=== PATIENT | female | born 1950 | race Caucasian/White ===

== ENCOUNTER 2024-07-24 12:13 | Emergency (ER) | payer MEDICARE, MEDICAID ==
[2024-07-24] MEDS: Aspirin 81 MG Tab.Chew PO ONE (12:29)
[2024-07-24 12:31] LABS: BASOPHILS ABSOLUTE AUTO 0.03 K/uL (0.00-0.20); BASOPHILS PERCENT AUTO 0.8 % (0.0-2.0); EOSINOPHILS ABSOLUTE AUTO 0.33 K/uL (0.00-0.50); EOSINOPHILS PERCENT AUTO 8.5 % (0.0-5.0); HEMATOCRIT 36.5 % (34.0-46.0); HEMOGLOBIN 10.8 g/dL (11.7-15.5); LYMPHOCYTES PERCENT AUTO 28.3 % (10.0-50.0); MEAN CORPUSCULAR HEMOGLOBIN 23.9 pg (28.2-33.3); MEAN CORPUSCULAR HGB CONC 29.6 g/dL (31.7-36.0); MEAN CORPUSCULAR VOLUME 80.9 fL (84.0-98.0); MONOCYTES ABSOLUTE AUTO 0.25 K/uL (0.00-1.00); MONOCYTES PERCENT AUTO 6.4 % (2.0-14.0); NEUTROPHILS ABSOLUTE AUTO 2.18 K/uL (1.40-7.00); PLATELET COUNT,PLT 208 K/uL (150-350); RED BLOOD CELL COUNT 4.51 M/uL (3.77-5.09); WHITE BLOOD CELL COUNT,WBC 3.9 K/uL (4.0-10.2)
[2024-07-24 12:51] LABS: ALANINE AMINOTRANSFERASE,ALT 15 U/L (12-78); ALBUMIN 3.5 g/dL (3.4-5.0); ALKALINE PHOSPHATASE 97 IU/L (46-116); ANION GAP 8.5 meq/L (7-15); ASPARTATE AMNIOTRANSFERASE,AST 19 U/L (15-37); BILIRUBIN TOTAL 0.4 mg/dL (0.2-1.0); BLOOD UREA NITROGEN,BUN 20 mg/dL (7-18); CALCIUM 8.9 mg/dL (8.5-10.1); CARBON DIOXIDE,CO2 28.5 mmol/L (21.0-32.0); CHLORIDE,CL 105 mmol/L (98-107); CREATININE 1.09 mg/dL (0.51-1.17); GLUCOSE RANDOM 133 mg/dL (70-99); MAGNESIUM 2.2 mg/dL (1.8-2.4); POTASSIUM,K 4.2 mmol/L (3.5-5.1); PROTEIN TOTAL,TP 6.7 g/dL (6.4-8.2); SODIUM,NA 142 mmol/L (136-145)
[2024-07-24 12:52] LABS: ESTIMATED GFR 54 mL/min (>=60)
[2024-07-24 13:01] LABS: PRO B-TYPE NATRIUR PEPT,BNPPRO 1142 pg/mL (0-125)
[2024-07-24 13:04] LABS: PROTHROMBIN TIME 9.8 SEC (9.0-11.1)
[2024-07-24] MEDS: Furosemide 40 MG/4 ML VIAL IVPUSH ONE (14:43)
[2024-07-24] MEDS: Sodium Chloride 0.9% 10 ML Syringe FLUSH PRN (14:44)
[2024-07-24 15:30] VITALS: BP 137/73; PULSE 63
== END 2024-07-24 14:45 | disposition home or self-care (01) ==
LOC: LL.ED 12:13
DX: R07.89 Other chest pain (principal); R03.0 Elevated blood-pressure reading, without diagnosis of hypertension; R79.89 Other specified abnormal findings of blood chemistry; Z88.2 Allergy status to sulfonamides; Z79.82 Long term (current) use of aspirin; Z79.899 Other long term (current) drug therapy
CPT/HCPCS: 36415; 71046; 80053; 83735; 83880; 84484; 85025; 85610; 93005; 93010; 96374; 99284; 99285-25; A9270-GY; J1940